=== PATIENT | male | born 1960 | race Caucasian/White ===

== ENCOUNTER 2018-02-11 09:01 | Emergency (ER) | payer BC ==
[2018-02-11 09:28] VITALS: BP 122/79
--- NOTE | 2018-02-11 10:06 | UC ---
Abdominal Pain Male HPI - HPI Summary HPI Summary: Pt presents with c/o generalized abdominal discomfort, diarrhea and generalized malaise X 3 days. Pt just returned from trip to [facility]. 3 days ago. - History of Current Complaint Chief Complaint: UCGI Stated Complaint: NAUSEA,DIARREAH,FEVER,COUGH Time Seen by Provider: 02/11/18 09:50 Hx Obtained From: Patient Onset/Duration: Sudden Onset, Lasting Days, Still Present Timing: Constant Severity Initially: Mild Severity Currently: Mild Pain Intensity: 2 Location: Diffuse Radiates: No Character: Colicy, Cramping, Dull Aggravating Factor(s): Food Alleviating Factor(s): Meds - imodium Associated Signs And Symptoms: Positive: Decreased Appetite, Vomiting, Diarrhea - Risk Factors Testicular Torsion: Negative Cardiac Risk Factors: Negative - Allergies/Home Medications Allergies/Adverse Reactions: Allergies Allergy/AdvReac Type Severity Reaction Status Date / Time No Known Allergies Allergy Verified 02/11/18 09:22 Home Medications: Home Medications Aspirin TAB* [Aspirin 325 MG TAB*] 650 mg PO Q6H PRN 02/11/18 [History Confirmed 02/11/18] Loperamide CAP* [Imodium CAP*] 2 - 4 mg PO SEE INSTRUCTIONS PRN 02/11/18 [ History Confirmed 02/11/18] Naproxen TAB* [Naprosyn 250 mg TAB*] 250 mg PO Q8H PRN 02/11/18 [History Confirmed 02/11/18] PMH/Surg Hx/FS Hx/Imm Hx Previously Healthy: Yes - Surgical History Surgical History: Yes Surgery Procedure, Year, and Place: Prostated "Pinned Open", 2018, [place] - Family History Known Family History: Positive: Cardiac Disease - Social History Occupation: Employed Full-time Lives: With Family Alcohol Use: None Substance Use Type: None Smoking Status (MU): Former Smoker Length of Time of Smoking/Using Tobacco: 1/2 PPD x 20-30 Years Have You Smoked in the Last Year: No When Did the Patient Quit Smoking/Using Tobacco: ~ Review of Systems All Other Systems Reviewed And Are Negative: Yes Constitutional: Positive: Negative Skin: Positive: Negative Eyes: Positive: Negative ENT: Positive: Negative Respiratory: Positive: Negative Cardiovascular: Positive: Negative Gastrointestinal: Positive: Abdominal Pain, Diarrhea, Nausea Genitourinary: Positive: Negative Motor: Positive: Negative Neurovascular: Positive: Negative Musculoskeletal: Positive: Myalgia Neurological: Positive: Negative Psychological: Positive: Negative Is Patient Immunocompromised?: No Physical Exam Triage Information Reviewed: Yes Appearance: Ill-Appearing Vital Signs: Initial Vital Signs Temp 98.7 F 02/11/18 09:18 Pulse 86 02/11/18 09:18 Resp 16 02/11/18 09:18 BP 122/79 02/11/18 09:18 Pulse Ox 98 02/11/18 09:18 Vital Signs Reviewed: Yes Eye Exam: Normal ENT Exam: Normal Neck exam: Normal Respiratory Exam: Normal Cardiovascular Exam: Normal Abdomen Description: Positive: Other: - generalized tenderness Bowel Sounds: Positive: Present Musculoskeletal Exam: Normal Neurological Exam: Normal Psychological Exam: Normal Skin Exam: Normal Abd Pain Male Course/Dx - Differential Dx/Clinical Impression Differential Diagnosis/HQI/PQRI: Other - travelers diarrhea Provider Diagnosis: Travelers' diarrhea Discharge - Sign-Out/Discharge Documenting (check all that apply): Patient Departure All imaging exams completed and their final reports reviewed: No Studies - Discharge Plan Condition: Stable Disposition: HOME Prescriptions: Ciprofloxacin TAB* [Cipro 500 MG TAB*] 500 mg PO Q12H #6 tab Ondansetron HCl [Zofran] 8 mg PO Q8H PRN #15 tablet PRN Reason: Nausea Patient Education Materials: Traveler's Diarrhea (ED) Referrals: No Primary Care Phys,NOPCP [Primary Care Provider] - [facility] [Outside] Additional Instructions: Please follow up with your PCP as soon as possible. If your symptoms do not improve, please go to the closest emergency room immediately. - Billing Disposition and Condition Condition: STABLE Disposition: Home - Attestation Statements Provider Attestation: I was available for consult. This patient was seen by the BRANDON. The patient was not presented to, seen by, or examined by me. EK
== END 2018-02-11 10:16 | disposition home or self-care (01) ==
LOC: UCCORT 09:01
DX: R19.7 Diarrhea, unspecified (principal); Z87.891 Personal history of nicotine dependence
CPT/HCPCS: 99202; G0463